=== PATIENT | male | born 1935 | race African-American/Black ===

== ENCOUNTER 2017-06-27 04:22 | Inpatient (IN) ==
[2017-06-27] MEDS ORDERED: SODIUM CHLORIDE 0.9% 1,000 ML IV PRN ×2 (05:22→05:58)
[2017-06-27 05:38] LABS: PT Patient Result 10.6 SECS; Partial Thromboplastin Time 22.6 SECS (0-40)
[2017-06-27 05:43] LABS: Alanine Aminotransferase 36 U/L (16-61); Albumin 3.4 G/DL (3.4-5.0); Alkaline Phosphatase 62 U/L (45-117); Aspartate Amino Transferase 21 U/L (0-37); Bilirubin,Total < 0.39 MG/DL (0.2-1.0); Blood Urea Nitrogen 32 MG/DL (7-18); Glucose 113 MG/DL (74-106); Osmolality,Calculated 284.5 MOS/KG (273-304); Potassium 4.3 MMOL/L (3.5-5.1); Sodium 139 MMOL/L (136-145); Troponin I Only < 0.015 NG/ML (0.00-0.045)
[2017-06-27 05:48] LABS: Basophils % 0.2 % (0.0-0.8); Eosinophils # 0.5 10*3/uL (0.0-0.87); Eosinophils % 8.4 % (0.00-10.9); Immature Granulocytes % 0.5 %; Immature Granulocytes Absolute 0.03 #; Lymphocytes # 1.2 10*3/uL (1.4-4.0); Lymphocytes % 18.8 % (21.2-54.2); Mean Corpuscular HGB Conc 33.3 GM/DL (32-36); Mean Corpuscular Hemoglobin 31 PG (27-34); Mean Corpuscular Volume 91.7 FL (87-102); Mean Platelet Volume 11.6 FL (9.6-12.0); Monocytes # 0.8 10*3/uL (0.11-0.8); Monocytes % 12.7 % (1.7-12.7); Neutrophils # 3.8 10*3/uL (1.4-7.4); Neutrophils % 59.4 % (38.7-73.9); Platelet Count 271 T/CUMM (130-400); Red Blood Count 2.29 MC/CUMM (3.8-5.5); Red Cell Distribution Width 14.9 % (9.3-17.3); White Blood Count 6.3 T/CUMM (4-12)
[2017-06-27] MEDS ORDERED: ONDANSETRON 4 MG/2 ML VIAL IV PRN (05:51)
[2017-06-27] MEDS ORDERED: ACETAMINOPHEN 325 MG TABLET PO PRN (05:51)
[2017-06-27] MEDS: PANTOPRAZOLE 40 MG TABLET PO SCH (17:07)
[2017-06-27 18:41] LABS: Hematocrit 28.3 VOL% (42.0-52.0)
[2017-06-27 18:43] LABS: Hemoglobin 9.6 GM/DL (14.0-18.0)
[2017-06-28 01:30] LABS: Hematocrit 26.3 VOL% (42.0-52.0); Hemoglobin 8.8 GM/DL (14.0-18.0)
[2017-06-28 05:49] LABS: Hematocrit 26.5 VOL% (42.0-52.0); Hemoglobin 8.9 GM/DL (14.0-18.0)
[2017-06-28] MEDS: PANTOPRAZOLE 40 MG TABLET PO SCH ×2 (08:30→21:50)
[2017-06-28] MEDS: MIRTAZAPINE 15 MG TABLET PO SCH (21:49)
[2017-06-28] MEDS: MEGESTROL 40 MG TABLET PO SCH (21:49)
[2017-06-28] MEDS: FERROUS SULFATE 325 MG TABLET PO SCH (21:49)
[2017-06-29 05:29] LABS: Basophils % 0.4 % (0.0-0.8); Eosinophils # 0.4 10*3/uL (0.0-0.87); Eosinophils % 7.1 % (0.00-10.9); Hematocrit 27.3 VOL% (42.0-52.0); Hemoglobin 9.3 GM/DL (14.0-18.0); Immature Granulocytes % 0.4 %; Immature Granulocytes Absolute 0.02 #; Lymphocytes # 0.9 10*3/uL (1.4-4.0); Lymphocytes % 15.6 % (21.2-54.2); Mean Corpuscular HGB Conc 34.1 GM/DL (32-36); Mean Corpuscular Hemoglobin 30 PG (27-34); Mean Corpuscular Volume 88.1 FL (87-102); Mean Platelet Volume 10.4 FL (9.6-12.0); Monocytes # 0.6 10*3/uL (0.11-0.8); Monocytes % 10.6 % (1.7-12.7); Neutrophils # 3.6 10*3/uL (1.4-7.4); Neutrophils % 65.9 % (38.7-73.9); Platelet Count 253 T/CUMM (130-400); Red Cell Distribution Width 16.3 % (9.3-17.3); White Blood Count 5.5 T/CUMM (4-12)
[2017-06-29 06:03] LABS: Osmolality,Calculated 282.1 MOS/KG (273-304); Potassium 4.1 MMOL/L (3.5-5.1)
[2017-06-29] MEDS: PANTOPRAZOLE 40 MG TABLET PO SCH ×2 (08:31→21:03)
[2017-06-29] MEDS: SERTRALINE 25 MG TABLET PO SCH (08:31)
[2017-06-29] MEDS: MULTIVITAMIN (CENTRUM) TABLET PO SCH (08:31)
[2017-06-29] MEDS: FERROUS SULFATE 325 MG TABLET PO SCH ×2 (08:31→21:03)
[2017-06-29] MEDS: MEGESTROL 40 MG TABLET PO SCH ×2 (08:31→21:03)
[2017-06-29] MEDS: LACTOBACILLUS ACIDOPHILUS/BULGARICUS CAPLET PO SCH (08:31)
[2017-06-29] MEDS: ATORVASTATIN 40 MG TABLET PO SCH (08:31)
[2017-06-29] MEDS: MIRTAZAPINE 15 MG TABLET PO SCH (21:02)
[2017-06-30] MEDS ORDERED: PROPOFOL 200 MG/20 ML VIAL IV ONE (15:05)
[2017-06-30] MEDS ORDERED: LIDOCAINE 100 MG/5 ML SYRINGE ONE (15:05)
[2017-06-30] MEDS: PANTOPRAZOLE 40 MG TABLET PO SCH ×2 (17:28→22:05)
[2017-06-30] MEDS: MEGESTROL 40 MG TABLET PO SCH ×2 (17:28→22:05)
[2017-06-30] MEDS: FERROUS SULFATE 325 MG TABLET PO SCH ×2 (17:28→22:05)
[2017-06-30] MEDS: LACTOBACILLUS ACIDOPHILUS/BULGARICUS CAPLET PO SCH (18:02)
[2017-06-30] MEDS: ATORVASTATIN 40 MG TABLET PO SCH (18:02)
[2017-06-30] MEDS: MULTIVITAMIN (CENTRUM) TABLET PO SCH (18:02)
[2017-06-30] MEDS: SERTRALINE 25 MG TABLET PO SCH (18:20)
[2017-06-30] MEDS: MIRTAZAPINE 15 MG TABLET PO SCH (22:04)
[2017-07-01] MEDS: LACTOBACILLUS ACIDOPHILUS/BULGARICUS CAPLET PO SCH (10:46)
[2017-07-01] MEDS: MULTIVITAMIN (CENTRUM) TABLET PO SCH (11:03)
[2017-07-01] MEDS: FERROUS SULFATE 325 MG TABLET PO SCH (11:03)
[2017-07-01] MEDS: ATORVASTATIN 40 MG TABLET PO SCH (11:04)
[2017-07-01] MEDS: SERTRALINE 25 MG TABLET PO SCH (11:04)
[2017-07-01] MEDS: PANTOPRAZOLE 40 MG TABLET PO SCH (11:04)
[2017-07-01] MEDS: MEGESTROL 40 MG TABLET PO SCH (11:05)
[2017-07-01 11:57] VITALS: BP 131/63
== END 2017-07-01 13:33 | DRG 378 ==
LOC: EDUNIT# → EDBD → N.ED 04:22 → N.EDINP 05:51 → SUATTDRO 05:51 → N.TELEN 06:27
PROVIDERS: ADMIT Internal Medicine; ATTEND Family Medicine